=== PATIENT | female | born 1935 | race Caucasian/White ===

== ENCOUNTER 2016-10-03 03:42 | Emergency (ER) | payer MEDICARE ==
[~2016-10-03 03:42] MED LIST: ASPIRINEC PO; ATIVAN PO; COMBIVENT INH14.7 GM INH; ENTOCORT EC3 MG PO; LORATADINE PO; METOPROLOL/HCTZ PO; NORVASC PO; PREDNISONE PO; TOPROL XL PO; ZANTAC PO; ZITHROMAX PO; ZOCOR PO
== END 2016-10-03 03:46 | disposition expired ==
LOC: CFTX 03:42
DX: I46.9 Cardiac arrest, cause unspecified (principal); I10 Essential (primary) hypertension; E78.5 Hyperlipidemia, unspecified; J44.9 Chronic obstructive pulmonary disease, unspecified; Z79.899 Other long term (current) drug therapy; Z79.82 Long term (current) use of aspirin
CPT/HCPCS: 99285